=== PATIENT | male | born 1950 | race Caucasian/White ===

== ENCOUNTER → 2023-11-01 12:28 | Outpatient (REF) | payer MEDICARE, OTHER, SELFPAY | LOC: MRI 3T 12:28 | PROVIDERS: ATTENDING PHYSICIAN Physician Assistant Surgical; FAMILY PHYSICIAN Internal Medicine | DX: M54.50 Low back pain, unspecified (principal); M41.86 Other forms of scoliosis, lumbar region; M51.36 Other intervertebral disc degeneration, lumbar region | CPT/HCPCS: 72148 ==

== ENCOUNTER → 2024-10-13 14:18 | Outpatient (REF) | payer MEDICARE, OTHER, SELFPAY | LOC: RAD 14:18 | PROVIDERS: ATTENDING PHYSICIAN Urology; FAMILY PHYSICIAN Student in an Organized Health Care Education/Training Program | DX: Z12.5 Encounter for screening for malignant neoplasm of prostate (principal) | CPT/HCPCS: 74178; Q9967 ==

== ENCOUNTER → 2024-10-14 14:05 | Outpatient (REF) | payer MEDICARE, OTHER, SELFPAY | LOC: CLAB 14:05 | PROVIDERS: ATTENDING PHYSICIAN Urology | DX: R31.0 Gross hematuria (principal) | CPT/HCPCS: 88112 ==

== ENCOUNTER → 2024-11-04 12:59 | Outpatient (REF) | payer MEDICARE, OTHER, SELFPAY ==
[2024-11-04 14:35] LABS: Hematocrit 30.4 % (39.0-52.0); Hemoglobin 9.6 g/dL (13.0-18.0); Mean Corp Hgb Conc. 31.6 g/dL (33.0-37.0); Mean Corpuscular Volume 91.0 fL (80.0-94.0); Platelet Count 485 10^3/uL (130-400); Red Cell Dist. Width 17.1 % (11.5-14.5)
[2024-11-04 16:32] LABS: Blood Urea Nitrogen 20 mg/dl (9-20); Calcium 9.8 mg/dl (8.4-10.2); Carbon Dioxide 28 mmol/L (22-30); Chloride 106 mmol/L (98-107); Glucose 109 mg/dl (70-99); Potassium 3.9 mmol/L (3.5-5.1); Sodium 141 mmol/L (135-145); eGFR 52.74
== END ==
LOC: SDSPAT 12:59
PROVIDERS: ATTENDING PHYSICIAN Urology; FAMILY PHYSICIAN Student in an Organized Health Care Education/Training Program
DX: Z01.818 Encounter for other preprocedural examination (principal)
CPT/HCPCS: 36415; 80048; 85027; 93005

== ENCOUNTER 2024-11-14 06:15 | Day surgery (SDC) | payer MEDICARE, OTHER, SELFPAY ==
[2024-11-04 13:40] VITALS: BMI 20.9
--- NOTE | 2024-11-07 12:30 | PTCARENOTE ---
Daysi in office made aware of Hgb 9.6.
--- NOTE | 2024-11-12 13:54 | PTCARENOTE ---
Dr. Zelaya made aware of Hgb 9.6, no further action requested.
[2024-11-14] VITALS (7 sets, daily range): BP systolic 111–117; BP diastolic 63–74; BMI 20.9
[2024-11-14] MEDS: NORMOSOL-R/PLASMALYTE-A 1000 IV (13:37)
== END 2024-11-14 16:29 | disposition home or self-care (01) ==
LOC: SDS 06:15
PROVIDERS: ATTENDING PHYSICIAN Urology; FAMILY PHYSICIAN Student in an Organized Health Care Education/Training Program
DX: N20.0 Calculus of kidney (principal); Z87.442 Personal history of urinary calculi
CPT/HCPCS: 52352; 74420; 76000; 82365

== ENCOUNTER 2025-02-23 06:27 | Outpatient (RCR) | payer SELFPAY | END 2025-02-23 13:02 | disposition home or self-care (01) | LOC: ROT 06:27 | PROVIDERS: ATTENDING PHYSICIAN Psychiatry & Neurology Neurology; FAMILY PHYSICIAN Student in an Organized Health Care Education/Training Program | DX: Z02.4 Encounter for examination for driving license (principal) ==